=== PATIENT | male | born 1980 | race Caucasian/White ===

== ENCOUNTER 2020-11-23 12:25 | Day surgery (SDC) | payer OTHER ==
[2020-11-23] MEDS ORDERED: BUPIVACAINE 0.5% VIAL IJ ONE (12:26)
[2020-11-23] MEDS ORDERED: Depo-Medrol 40 MG/ML IM ONE (12:26)
[2020-11-23] MEDS ORDERED: DIPRIVAN 200 MG/20 ML IV ONE (14:15)
--- NOTE | 2020-11-23 14:57 | XRAY ---
Indication: Right T9-T12 MBB. Intraoperative fluoroscopy provided for 19 seconds. Single digital spot image submitted for interpretation demonstrates posterior needle tips projecting over the expected right T9-T12 nerve roots. Correlate with intraoperative findings/report.
--- NOTE | 2020-11-23 14:59 | XRAY ---
19 seconds fluoroscopy time in surgery for right T9-T12 MBB.
[2020-11-23] MEDS ORDERED: Lactated Ringers 1,000 ML IV ONE (16:20)
== END 2020-11-23 14:41 | disposition home or self-care (01) ==
LOC: SDC-PAIN 12:25
PROVIDERS: ATTEND Psychiatry & Neurology Pain Medicine
DX: M47.814 Spondylosis without myelopathy or radiculopathy, thoracic region (principal); I10 Essential (primary) hypertension; M19.90 Unspecified osteoarthritis, unspecified site; K21.9 Gastro-esophageal reflux disease without esophagitis; F32.9 Major depressive disorder, single episode, unspecified; F41.9 Anxiety disorder, unspecified; J44.9 Chronic obstructive pulmonary disease, unspecified; Z79.899 Other long term (current) drug therapy
CPT/HCPCS: 64490; 64491; 72020; 77002; J1030; J2704

== ENCOUNTER 2021-01-11 12:14 | Day surgery (SDC) | payer OTHER ==
[2021-01-11] MEDS ORDERED: BUPIVACAINE 0.5% VIAL IJ ONE (12:15)
[2021-01-11] MEDS ORDERED: Depo-Medrol 40 MG/ML IM ONE (12:15)
[2021-01-11] MEDS ORDERED: DIPRIVAN 200 MG/20 ML IV ONE (15:06)
[2021-01-11] MEDS ORDERED: Lactated Ringers 1,000 ML IV ONE (17:32)
--- NOTE | 2021-01-12 08:11 | XRAY ---
18 seconds fluoroscopy time in surgery for right T9-T12 MBB.
== END 2021-01-11 15:30 | disposition home or self-care (01) ==
LOC: SDC-PAIN 12:14
PROVIDERS: ATTEND Psychiatry & Neurology Pain Medicine
DX: M47.814 Spondylosis without myelopathy or radiculopathy, thoracic region (principal); R73.03 Prediabetes; I10 Essential (primary) hypertension; J44.9 Chronic obstructive pulmonary disease, unspecified; Z79.899 Other long term (current) drug therapy
CPT/HCPCS: 64490; 64491; 64492; 72072; 77002; 82947; J1030; J2704

== ENCOUNTER 2021-05-10 09:52 | Day surgery (SDC) | payer OTHER ==
[2021-05-10] MEDS ORDERED: Depo-Medrol 40 MG/ML IM ONE (09:53)
[2021-05-10] MEDS ORDERED: BUPIVACAINE 0.5% VIAL IJ ONE (09:53)
[2021-05-10] MEDS ORDERED: Xylocaine 1% Vial 30 ML PF IJ ONE (09:53)
[2021-05-10] MEDS ORDERED: Lactated Ringers 1,000 ML IV ONE (10:44)
[2021-05-10] MEDS ORDERED: DIPRIVAN 200 MG/20 ML IV ONE ×2 (11:31→11:43)
--- NOTE | 2021-05-10 12:58 | XRAY ---
Indication: Right T9-T12 RFA. Intraoperative fluoroscopy provided for 1 minute 23 seconds. 4 digital spot image submitted for interpretation demonstrates posterior needle tips projecting over the expected right T9-T12 nerve roots. Correlate with intraoperative findings/report. Incidental incompletely visualized bilateral thoracolumbar posterior spinal fusion hardware.
--- NOTE | 2021-05-10 13:00 | XRAY ---
1 minute and 23 seconds fluoroscopy time in surgery for right T9-T12 RFA.
== END 2021-05-10 12:15 | disposition home or self-care (01) ==
LOC: SDC-PAIN 09:52
PROVIDERS: ATTEND Psychiatry & Neurology Pain Medicine
DX: M47.816 Spondylosis without myelopathy or radiculopathy, lumbar region (principal); I10 Essential (primary) hypertension; M19.90 Unspecified osteoarthritis, unspecified site; K21.9 Gastro-esophageal reflux disease without esophagitis; F41.9 Anxiety disorder, unspecified; F32.9 Major depressive disorder, single episode, unspecified; J44.9 Chronic obstructive pulmonary disease, unspecified; Z79.899 Other long term (current) drug therapy
CPT/HCPCS: 64633; 64634; 72072; 77002; 82947; J1030; J2001; J2704

== ENCOUNTER 2021-10-04 07:55 | Day surgery (SDC) | payer OTHER ==
[2021-10-04] MEDS ORDERED: Lactated Ringers 1,000 ML IV ONE (09:25)
[2021-10-04] MEDS ORDERED: DIPRIVAN 200 MG/20 ML IV ONE (09:52)
--- NOTE | 2021-10-04 10:39 | XRAY ---
Indication: Right T6-T9 MBB. Intraoperative fluoroscopy provided for 27 seconds. Single digital spot image submitted for interpretation demonstrates posterior needle tips projecting over the expected right T6-T9 nerve roots. Correlate with intraoperative findings/report.
--- NOTE | 2021-10-04 10:40 | XRAY ---
27 seconds fluoroscopy time in surgery for right T6-T9 MBB.
== END 2021-10-04 10:17 | disposition home or self-care (01) ==
LOC: SDC-PAIN 07:55
PROVIDERS: ATTEND Psychiatry & Neurology Pain Medicine
DX: M47.814 Spondylosis without myelopathy or radiculopathy, thoracic region (principal); E11.9 Type 2 diabetes mellitus without complications; Z79.899 Other long term (current) drug therapy
CPT/HCPCS: 72072; 77002; 82947; J2704

== ENCOUNTER 2021-12-27 07:44 | Day surgery (SDC) | payer OTHER ==
[2021-12-27] MEDS ORDERED: Sodium Chloride 0.9(Preservative Free) 10 ML IJ ONE (07:45)
[2021-12-27] MEDS ORDERED: XYLOCAINE-MPF 1% 5ML SDV IJ ONE (07:45)
[2021-12-27] MEDS ORDERED: Depo-Medrol 40 MG/ML IM ONE (07:45)
[2021-12-27] MEDS ORDERED: DIPRIVAN 200 MG/20 ML IV ONE (09:04)
[2021-12-27] MEDS ORDERED: Lactated Ringers 1,000 ML IV ONE (09:57)
--- NOTE | 2021-12-28 18:30 | XRAY ---
25 seconds fluoroscopy time in surgery forlumbar ARABELLA.
--- NOTE | 2021-12-29 20:23 | XRAY ---
Indication: Lumbar ARABELLA. Intraoperative fluoroscopy provided for 25 seconds. PA and lateral digital spot images submitted for interpretation demonstrates midline posterior needle tip projecting L1-L2. On the lateral image, a small amount of contrast has been injected for needle tip placement. Extensive orthopedic hardware is partly seen within the lumbar spine. Correlate with intraoperative findings/report.
== END 2021-12-27 09:30 | disposition home or self-care (01) ==
LOC: SDC-PAIN 07:44
PROVIDERS: ATTEND Psychiatry & Neurology Pain Medicine
DX: M54.16 Radiculopathy, lumbar region (principal); E11.9 Type 2 diabetes mellitus without complications; Z79.899 Other long term (current) drug therapy
CPT/HCPCS: 62323; 72100; 77003; 82947; J1030; J2704; Q9966

== ENCOUNTER 2022-02-14 09:07 | Day surgery (SDC) | payer OTHER ==
[2022-02-14] MEDS ORDERED: Marcaine Mpf 0.5% Vial 30 Ml IJ ONE (09:08)
[2022-02-14] MEDS ORDERED: Lactated Ringers 1,000 ML IV ONE (10:17)
[2022-02-14] MEDS ORDERED: DIPRIVAN 200 MG/20 ML IV ONE (10:21)
--- NOTE | 2022-02-14 13:58 | XRAY ---
Indication: Right T6-T9 MBB. Intraoperative fluoroscopy provided for 34 seconds. Single digital spot image submitted for interpretation demonstrates posterior needle tips projecting over the expected right T6-T9 nerve roots. Correlate with intraoperative findings/report.
--- NOTE | 2022-02-14 16:47 | XRAY ---
34 seconds fluoroscopy time in surgery for right T6-T9 MBB.
== END 2022-02-14 10:45 | disposition home or self-care (01) ==
LOC: SDC-PAIN 09:07
PROVIDERS: ATTEND Psychiatry & Neurology Pain Medicine
DX: M47.814 Spondylosis without myelopathy or radiculopathy, thoracic region (principal); E11.9 Type 2 diabetes mellitus without complications; Z79.899 Other long term (current) drug therapy
CPT/HCPCS: 64491; 64492; 72072; 77002; 82947; J2704

== ENCOUNTER 2022-03-07 11:44 | Day surgery (SDC) | payer OTHER ==
[2022-03-07] MEDS ORDERED: XYLOCAINE-MPF 1% 5ML SDV IJ ONE (11:45)
[2022-03-07] MEDS ORDERED: BUPIVACAINE 0.5% VIAL IJ ONE (11:45)
[2022-03-07] MEDS ORDERED: Depo-Medrol 40 MG/ML IM ONE (11:45)
[2022-03-07] MEDS ORDERED: DIPRIVAN 200 MG/20 ML IV ONE (13:37)
[2022-03-07] MEDS ORDERED: Lactated Ringers 1,000 ML IV ONE (13:59)
--- NOTE | 2022-03-07 14:36 | XRAY ---
Indication: Right T6-T9 RFA. Intraoperative fluoroscopy provided for 38 seconds. Single digital spot image submitted for interpretation demonstrates posterior needle tips projecting over the expected right T6-T9 nerve roots. Correlate with intraoperative findings/report.
--- NOTE | 2022-03-07 14:57 | XRAY ---
38 seconds of fluoroscopy was used in surgery for a right T6-T9 RFA.
== END 2022-03-07 14:10 | disposition home or self-care (01) ==
LOC: SDC-PAIN 11:44
PROVIDERS: ATTEND Psychiatry & Neurology Pain Medicine
DX: M47.816 Spondylosis without myelopathy or radiculopathy, lumbar region (principal); E11.9 Type 2 diabetes mellitus without complications; Z79.899 Other long term (current) drug therapy
CPT/HCPCS: 01939; 64633; 64634; 72072; 77002; 82947; J1030; J2704

== ENCOUNTER 2022-04-11 07:32 | Day surgery (SDC) | payer OTHER ==
[2022-04-11] MEDS ORDERED: Sodium Chloride 0.9(Preservative Free) 10 ML IJ ONE (07:33)
[2022-04-11] MEDS ORDERED: Depo-Medrol 40 MG/ML IM ONE (07:33)
[2022-04-11] MEDS ORDERED: Lactated Ringers 1,000 ML IV ONE (08:58)
[2022-04-11] MEDS ORDERED: DIPRIVAN 200 MG/20 ML IV ONE (09:04)
--- NOTE | 2022-04-11 10:01 | XRAY ---
Indication: Caudal ARABELLA. Intraoperative fluoroscopy was provided for 26 seconds. 2 digital spot images submitted for interpretation demonstrates caudal needle tip projecting mid sacrum. Small amount of contrast injected for needle tip placement. Correlate with intraoperative findings/report. Incidental incompletely visualized lumbosacral junction fusion hardware.
--- NOTE | 2022-04-11 10:03 | XRAY ---
26 seconds of fluoroscopy was used in surgery for a caudal ARABELLA.
== END 2022-04-11 09:30 | disposition home or self-care (01) ==
LOC: SDC-PAIN 07:32
PROVIDERS: ATTEND Psychiatry & Neurology Pain Medicine
DX: M54.16 Radiculopathy, lumbar region (principal); E11.9 Type 2 diabetes mellitus without complications; Z79.899 Other long term (current) drug therapy
CPT/HCPCS: 62323; 72220; 77003; 82947; J1030; J2704; Q9966

== ENCOUNTER 2022-10-17 06:34 | Day surgery (SDC) | payer OTHER ==
[2022-10-17] MEDS ORDERED: LIDOCAINE HCL 1% 50 MG/5 ML VL PF IJ ONE (06:35)
[2022-10-17] MEDS ORDERED: Sodium Chloride 0.9(Preservative Free) 10 ML IJ ONE (06:35)
[2022-10-17] MEDS ORDERED: DIPRIVAN 200 MG/20 ML IV ONE ×2 (07:41→08:17)
[2022-10-17] MEDS ORDERED: Xylocaine-Mpf 2% 5 Ml Vial ONE (07:56)
--- NOTE | 2022-10-17 11:27 | XRAY ---
Indication: Spinal cord stimulator trial. Intraoperative fluoroscopy provided 1 minute 58 seconds. 9 digital spot image submitted for interpretation demonstrates posterior introducer needle tip projecting posterior to L2. Ultimately a single epidural stimulator device inserted with the tip positioned mid thoracic level. Correlate with intraoperative findings/report. Incidental incompletely visualized bilateral thoracolumbar posterior fusion hardware.
--- NOTE | 2022-10-17 11:41 | XRAY ---
One minute and 58 seconds of fluoroscopy was used in surgery for a spinal cord stim trial.
[2022-10-17] MEDS ORDERED: Lactated Ringers 1,000 ML IV ONE (12:19)
== END 2022-10-17 09:15 | disposition home or self-care (01) ==
LOC: SDC-PAIN 06:34
PROVIDERS: ATTEND Psychiatry & Neurology Pain Medicine
DX: M96.1 Postlaminectomy syndrome, not elsewhere classified (principal); E11.9 Type 2 diabetes mellitus without complications; Z79.899 Other long term (current) drug therapy
CPT/HCPCS: 01941; 63650; 72100; 77002; 82947; C1778; J2001; J2704

== ENCOUNTER 2023-08-27 06:01 | Day surgery (SDC) | payer OTHER ==
[2023-08-27] MEDS ORDERED: Lactated Ringers 1,000 ML IV ONE (06:12)
[2023-08-27] MEDS: Lactated Ringers 1,000 ML IV SCH (06:18)
[2023-08-27 06:29] VITALS: RESP 18
[2023-08-27] MEDS ORDERED: Xylocaine-Mpf 2% 5 Ml Vial ONE (07:28)
[2023-08-27] MEDS ORDERED: DIPRIVAN 200 MG/20 ML IV ONE ×2 (07:29→07:46)
[2023-08-27] MEDS ORDERED: SUBLIMAZE 100 MCG/2 ML ONE (07:31)
[2023-08-27] MEDS ORDERED: Versed 2 MG/2 ML Injection ONE (07:31)
[2023-08-27 08:38] VITALS: BP 131/96; PULSE 88; TEMP 97.5; O2SAT 93
--- NOTE | 2023-08-27 08:51 | OP ---
SURGERY DATE/TIME: 08/27/2023 1289 PREOPERATIVE DIAGNOSIS: Family history of colon cancer. POSTOPERATIVE DIAGNOSIS: Mild sigmoid diverticulosis otherwise normal colon. PROCEDURE: Colonoscopy. SURGEON: Dr. Howard. ANESTHESIA: Medications given by anesthesia department. HISTORY: The patient is a 43-year-old white male patient with strong family history of colon cancer and was felt the need to have endoscopic evaluation for screening. The patient was appraised of the risks of the procedure including the risk of perforation, phlebitis, untoward reaction to medication, bleeding and missed lesions. The patient verbalized his understanding and desired to have the procedure performed. DESCRIPTION OF PROCEDURE: The patient was given the medications by the anesthesia department. He had continuous pulse oximetry, ECG monitoring and intermittent blood pressure monitoring during the examination. He was placed in the left lateral decubitus position. A digital rectal examination was performed and revealed normal anal sphincter tone, no masses and a normal prostate. The flexible Olympus pediatric colonoscope was used to intubate the rectum. A view of the colon was developed sequentially to the cecum. Upon insertion and withdrawal was noted scattered sigmoid diverticula but no other mucosal lesions were noted. The scope was removed from the patient who tolerated the procedure well and was sent back to OP recovery in good condition. The prep was noted to be fair to good. They made mention of possibility of sleep apnea issues and the anesthesia person had felt the patient might benefit from a sleep apnea and this information was given to his girlfriend.
== END 2023-08-27 08:48 | disposition home or self-care (01) ==
LOC: SDC 06:01
PROVIDERS: ATTEND Family Medicine
DX: Z80.0 Family history of malignant neoplasm of digestive organs (principal); K57.30 Diverticulosis of large intestine without perforation or abscess without bleeding; E11.9 Type 2 diabetes mellitus without complications
CPT/HCPCS: 82947; J2250; J2704; J3010